=== PATIENT | male | born 1985 | race Native Hawaiian/Other Pacific Islander ===

== ENCOUNTER 2020-06-09 17:30 | Inpatient (IN) | payer MEDICAID, OTHER ==
[~2020-06-09] VITALS: Ht 180.3 cm; Wt 180.0 kg
[2020-06-09] MEDS ORDERED: SODIUM CHLORIDE 0.9% 1,000 ML IV ONE (19:00)
[2020-06-09 19:16] LABS: Basophils # (auto) 0 10 ^3/uL (0-0.2); Eosinophils # (auto) 0 10 ^3/uL (0-0.8); Eosinophils % (auto) 0.1 % (0.0-7.0); Monocytes # (auto) 0.8 10 ^3/uL (0-1.3); Monocytes % (auto) 7.8 % (0.0-12.0)
[2020-06-09 19:18] LABS: Basophils % (auto) 0.4 % (0.0-2.0); Hematocrit 47.3 % (41.0-53.0); Hemoglobin 14.9 g/dL (13.5-17.5); Lymphocytes # (auto) 1.7 10 ^3/uL (0.4-5.4); Lymphocytes % (auto) 16.5 % (10.0-50.0); Mean Corpuscular Hemoglobin 24.4 pg (28.0-32.0); Mean Corpuscular Hgb Conc. 31.5 g/dL (32.0-36.0); Mean Corpuscular Volume 77.5 fL (80.0-100.0); Neutrophils # (auto) 7.7 10 ^3/uL (1.6-8.6); Neutrophils % (auto) 75.2 % (37.0-80.0); Nucleated Red Blood Cells % 0.3 %; Platelet Count (auto) 221 10^3/uL (140-450); Red Blood Cells 6.11 10^6/uL (4.5-5.90); Red Cell Distribution Width 16.4 % (11.8-14.3); White Blood Cell 10.2 10^3/uL (4.4-10.8)
[2020-06-09 19:36] LABS: Albumin 2.6 g/dL (3.4-5.0); Anion Gap 7 (5-15); BUN/Creatinine Ratio 11.1; Blood Urea Nitrogen 10 mg/dL (7-18); Calcium 8.5 mg/dL (8.5-10.1); Carbon Dioxide 31 mmol/L (21-32); Chloride 97 mmol/L (98-107); GFR African American 123 mL/min; GFR Non-African American 102 mL/min; Glucose 220 mg/dL (74-106); Potassium 3.9 mmol/L (3.5-5.1); Sodium 135 mmol/L (136-145)
[2020-06-09 19:41] LABS: Alanine Aminotransferase 57 U/L (16-61); Alkaline Phosphatase 142 U/L (45-117); Aspartate Aminotransferase 66 U/L (15-37); Bilirubin, Total 0.5 mg/dL (0.2-1.0)
[2020-06-09] MEDS ORDERED: MORPHINE SULF INJ 2 MG/ML SYRINGE 1ML IV PRN (23:00)
[2020-06-09] MEDS ORDERED: HYDROcodone-ACET 5/325MG TAB PO PRN (23:00)
[2020-06-09] MEDS ORDERED: ONDANSETRON HCL 4 MG/2 ML VIAL IV PRN (23:00)
[2020-06-09] MEDS ORDERED: DOCUSATE SOD 100 MG CAP PO PRN (23:00)
[2020-06-09] MEDS ORDERED: DEXTROSE (50%) 50ML SYRG IV PRN (23:00)
[2020-06-09] MEDS ORDERED: LORazepam 0.5 MG TAB PO PRN (23:00)
[2020-06-09] MEDS ORDERED: ACETAMINOPHEN 500 MG TAB PO PRN (23:00)
[2020-06-09] MEDS ORDERED: ACETAMINOPHEN 325 MG TAB PO PRN (23:00)
[2020-06-09 23:17] VITALS: BP 143/76
[2020-06-09 23:20] LABS: Urine Bacteria NONE SEEN /hpf (None Seen); Urine Blood Negative /uL (Negative); Urine Mucus FEW (None Seen); Urine WBC 1 /hpf (0 - 3)
[2020-06-10] VITALS (15 sets, daily range): BP systolic 108–147; BP diastolic 62–88
[2020-06-10] MEDS: ACCU-CHEK COMFORT CURVE STRIP VI SCH ×6 (00:02→20:05)
[2020-06-10] MEDS: InsuLIN REG 1unit/0.01ml Soln (100units/ml) SC SCH ×7 (00:03→23:59)
[2020-06-10] MEDS: ALBUTEROL SULF HFA 90MCG INH 200DOSE IN SCH (08:22)
[2020-06-10 08:25] LABS: White Blood Cell 9.9 10^3/uL (4.4-10.8)
[2020-06-10 08:31] LABS: Hematocrit 47.6 % (41.0-53.0); Hemoglobin 14.7 g/dL (13.5-17.5); Mean Corpuscular Hemoglobin 24.6 pg (28.0-32.0); Mean Corpuscular Hgb Conc. 30.9 g/dL (32.0-36.0); Mean Corpuscular Volume 79.5 fL (80.0-100.0); Platelet Count (auto) 245 10^3/uL (140-450); Red Blood Cells 5.99 10^6/uL (4.5-5.90); Red Cell Distribution Width 17.3 % (11.8-14.3)
[2020-06-10 08:45] LABS: Basophils % (manual) 0 (0.0-2.0); Blast Cells 0; Eosinophils % (manual) 0 (0-7); Metamyelocytes % 0; Promyelocytes % 0; Reactive Lymphocytes 0
[2020-06-10 08:51] LABS: Potassium 4.4 mmol/L (3.5-5.1)
[2020-06-10 08:59] LABS: Albumin 2.4 g/dL (3.4-5.0); BUN/Creatinine Ratio 13.2; Bilirubin, Total 0.4 mg/dL (0.2-1.0); Calcium 8.2 mg/dL (8.5-10.1); Magnesium 2.6 mg/dL (1.6-2.6); Total Protein 7.8 g/dL (6.4-8.2)
[2020-06-10 09:30] LABS: Band Neutrophils % (manual) 3; Lymphocytes % (manual) 13 (10.0-50.0); Monocytes % (manual) 3 (0-12); Myelocytes % 1
[2020-06-10] MEDS: DOXYCYCLINE 100 MG TAB/CAP PO SCH ×2 (09:42→22:30)
[2020-06-10] MEDS: ZINC SULFATE 220mg CAP or TAB PO SCH (09:42)
[2020-06-10] MEDS: ASCORBIC ACID 1,000 MG TAB PO SCH (09:42)
[2020-06-10] MEDS ORDERED: ENOXAPARIN SOD 40 MG/0.4 ML SYRINGE SC SCH (10:00)
[2020-06-10] MEDS ORDERED: PATIENTS OWN MEDICATION (REMDESIVIR 200 MG) IV SCH (10:15)
[2020-06-10] MEDS ORDERED: BUDESONIDE (INHALATION) 0.5 MG/2 ML NEB NEB ONE (11:45)
[2020-06-10] MEDS ORDERED: FUROSEMIDE 40 MG/4 ML VIAL IV ONE ×2 (11:45→18:30)
[2020-06-10] MEDS ORDERED: THIAMINE 100mg/ml INJ (200mg/2ml VIAL) IV ONE (11:45)
[2020-06-10] MEDS ORDERED: REMDESIVIR 200 MG in NS 210ml LOADING DOSE ADULT IV ONE (15:00)
[2020-06-10] MEDS ORDERED: POTASSIUM CHL 20 Meq TABLET PO ONE (18:30)
[2020-06-10] MEDS: BUDESONIDE (INHALATION) 0.5 MG/2 ML NEB NEB SCH (21:07)
[2020-06-10] MEDS: ALBUTEROL SULF 2.5 MG/0.5ML(0.5%) NEB SOLN NEB SCH (21:07)
[2020-06-10] MEDS: ENOXAPARIN SOD 40 MG/0.4 ML SYRINGE SC SCH (22:30)
[2020-06-10] MEDS: INSULIN 70/30 1unit/0.01ml Susp (100units/ml) SC SCH (23:54)
[2020-06-11] VITALS (11 sets, daily range): BP systolic 109–147; BP diastolic 51–95
[2020-06-11 03:48] LABS: Basophils # (auto) 0 10 ^3/uL (0-0.2); Eosinophils # (auto) 0 10 ^3/uL (0-0.8); Eosinophils % (auto) 0.3 % (0.0-7.0); Hemoglobin 14.8 g/dL (13.5-17.5); Lymphocytes # (auto) 1.6 10 ^3/uL (0.4-5.4); Monocytes # (auto) 0.7 10 ^3/uL (0-1.3); Neutrophils # (auto) 7.5 10 ^3/uL (1.6-8.6); White Blood Cell 9.8 10^3/uL (4.4-10.8)
[2020-06-11 03:50] LABS: Basophils % (auto) 0.3 % (0.0-2.0); Hematocrit 46.5 % (41.0-53.0); Mean Corpuscular Hgb Conc. 31.8 g/dL (32.0-36.0); Mean Corpuscular Volume 78.4 fL (80.0-100.0); Monocytes % (auto) 6.8 % (0.0-12.0); Neutrophils % (auto) 76.6 % (37.0-80.0); Nucleated Red Blood Cells % 0.7 %; Platelet Count (auto) 231 10^3/uL (140-450); Red Blood Cells 5.93 10^6/uL (4.5-5.90); Red Cell Distribution Width 16.4 % (11.8-14.3)
[2020-06-11 04:01] LABS: Albumin 2.4 g/dL (3.4-5.0); Calcium 8.1 mg/dL (8.5-10.1); Magnesium 2.5 mg/dL (1.6-2.6)
[2020-06-11 04:05] LABS: BUN/Creatinine Ratio 16.9; Bilirubin, Total 0.6 mg/dL (0.2-1.0); Total Protein 8.1 g/dL (6.4-8.2)
[2020-06-11 04:17] LABS: CRP High Sensitivity 9.72 mg/dL (< 0.3)
[2020-06-11 04:24] LABS: INR 1.03 (0.9-1.15)
[2020-06-11] MEDS: ACCU-CHEK COMFORT CURVE STRIP VI SCH ×6 (04:28→23:25)
[2020-06-11] MEDS: InsuLIN REG 1unit/0.01ml Soln (100units/ml) SC SCH ×4 (04:30→18:00)
[2020-06-11] MEDS: BUDESONIDE (INHALATION) 0.5 MG/2 ML NEB NEB SCH ×2 (07:03→21:38)
[2020-06-11] MEDS: ALBUTEROL SULF 2.5 MG/0.5ML(0.5%) NEB SOLN NEB SCH ×3 (07:03→21:38)
[2020-06-11] MEDS: ASCORBIC ACID 1,000 MG TAB PO SCH (08:12)
[2020-06-11] MEDS: ZINC SULFATE 220mg CAP or TAB PO SCH (08:12)
[2020-06-11] MEDS: DOXYCYCLINE 100 MG TAB/CAP PO SCH ×2 (08:12→23:24)
[2020-06-11] MEDS: INSULIN 70/30 1unit/0.01ml Susp (100units/ml) SC SCH ×2 (09:26→22:00)
[2020-06-11] MEDS: ENOXAPARIN SOD 40 MG/0.4 ML SYRINGE SC SCH ×2 (09:28→23:24)
[2020-06-11] MEDS: THIAMINE 100mg/ml INJ (200mg/2ml VIAL) IV SCH (09:29)
[2020-06-11] MEDS ORDERED: FUROSEMIDE 40 MG/4 ML VIAL IV SCH (10:00)
[2020-06-11] MEDS: REMDESIVIR 100mg in NS 230ml DAILYx4DAYS (NO VENT) IV SCH (15:40)
[2020-06-11] MEDS: FUROSEMIDE 40 MG/4 ML VIAL IV SCH (18:01)
[2020-06-11] MEDS ORDERED: guaiFENesin 200 MG/10 ML UD PO PRN (23:30)
[2020-06-12] VITALS (10 sets, daily range): BP systolic 101–118; BP diastolic 49–79
[2020-06-12] MEDS: InsuLIN REG 1unit/0.01ml Soln (100units/ml) SC SCH ×5 (00:25→23:38)
[2020-06-12 03:42] LABS: Albumin 2.4 g/dL (3.4-5.0); Calcium 7.9 mg/dL (8.5-10.1); Potassium 3.5 mmol/L (3.5-5.1)
[2020-06-12 03:45] LABS: BUN/Creatinine Ratio 17.2; Bilirubin, Total 0.6 mg/dL (0.2-1.0); Total Protein 7.5 g/dL (6.4-8.2)
[2020-06-12] MEDS: BUDESONIDE (INHALATION) 0.5 MG/2 ML NEB NEB SCH ×2 (06:12→22:15)
[2020-06-12] MEDS: ALBUTEROL SULF 2.5 MG/0.5ML(0.5%) NEB SOLN NEB SCH ×3 (06:12→22:15)
[2020-06-12] MEDS: FUROSEMIDE 40 MG/4 ML VIAL IV SCH ×2 (07:01→17:13)
[2020-06-12] MEDS: ACCU-CHEK COMFORT CURVE STRIP VI SCH ×4 (07:02→23:38)
[2020-06-12] MEDS: ZINC SULFATE 220mg CAP or TAB PO SCH (09:28)
[2020-06-12] MEDS: THIAMINE 100mg/ml INJ (200mg/2ml VIAL) IV SCH (09:28)
[2020-06-12] MEDS: ASCORBIC ACID 1,000 MG TAB PO SCH (09:29)
[2020-06-12] MEDS: ENOXAPARIN SOD 40 MG/0.4 ML SYRINGE SC SCH ×2 (09:29→21:05)
[2020-06-12] MEDS: DOXYCYCLINE 100 MG TAB/CAP PO SCH ×2 (09:29→21:04)
[2020-06-12] MEDS: INSULIN 70/30 1unit/0.01ml Susp (100units/ml) SC SCH ×2 (10:00→21:04)
[2020-06-12] MEDS: REMDESIVIR 100mg in NS 230ml DAILYx4DAYS (NO VENT) IV SCH (16:01)
[2020-06-12] MEDS ORDERED: ACETAMINOPHEN 325 MG TAB PO PRN (19:30)
[2020-06-12] MEDS: ERGOCALCIFEROL 50,000 UNIT(1.25MG) CAP PO SCH (20:00)
[2020-06-13] VITALS (8 sets, daily range): BP systolic 103–126; BP diastolic 58–74
[2020-06-13 03:28] LABS: Basophils # (auto) 0 10 ^3/uL (0-0.2); Basophils % (auto) 0.3 % (0.0-2.0); Eosinophils # (auto) 0.1 10 ^3/uL (0-0.8); Lymphocytes # (auto) 1.1 10 ^3/uL (0.4-5.4); Monocytes # (auto) 0.7 10 ^3/uL (0-1.3); Neutrophils # (auto) 6.1 10 ^3/uL (1.6-8.6); Neutrophils % (auto) 75.7 % (37.0-80.0); Red Blood Cells 5.88 10^6/uL (4.5-5.90)
[2020-06-13 03:29] LABS: Eosinophils % (auto) 1.8 % (0.0-7.0); Hematocrit 45.4 % (41.0-53.0); Hemoglobin 14.6 g/dL (13.5-17.5); Lymphocytes % (auto) 13.3 % (10.0-50.0); Mean Corpuscular Hemoglobin 24.9 pg (28.0-32.0); Mean Corpuscular Hgb Conc. 32.2 g/dL (32.0-36.0); Mean Corpuscular Volume 77.3 fL (80.0-100.0); Monocytes % (auto) 8.9 % (0.0-12.0); Nucleated Red Blood Cells % 0.3 %; Platelet Count (auto) 280 10^3/uL (140-450); Red Cell Distribution Width 16.2 % (11.8-14.3)
[2020-06-13 03:47] LABS: Albumin 2.4 g/dL (3.4-5.0); Calcium 8.2 mg/dL (8.5-10.1); Potassium 3.5 mmol/L (3.5-5.1)
[2020-06-13 04:28] LABS: Bilirubin, Total 0.8 mg/dL (0.2-1.0); Total Protein 7.5 g/dL (6.4-8.2)
[2020-06-13] MEDS: InsuLIN REG 1unit/0.01ml Soln (100units/ml) SC SCH ×3 (06:00→17:17)
[2020-06-13] MEDS: ALBUTEROL SULF 2.5 MG/0.5ML(0.5%) NEB SOLN NEB SCH ×3 (06:08→22:34)
[2020-06-13] MEDS: BUDESONIDE (INHALATION) 0.5 MG/2 ML NEB NEB SCH ×2 (06:09→22:34)
[2020-06-13] MEDS: ACCU-CHEK COMFORT CURVE STRIP VI SCH ×3 (06:23→17:12)
[2020-06-13] MEDS: FUROSEMIDE 40 MG/4 ML VIAL IV SCH ×2 (06:23→18:48)
[2020-06-13] MEDS: INSULIN 70/30 1unit/0.01ml Susp (100units/ml) SC SCH ×2 (10:12→23:29)
[2020-06-13] MEDS: THIAMINE 100mg/ml INJ (200mg/2ml VIAL) IV SCH (10:13)
[2020-06-13] MEDS: ZINC SULFATE 220mg CAP or TAB PO SCH (10:14)
[2020-06-13] MEDS: ENOXAPARIN SOD 40 MG/0.4 ML SYRINGE SC SCH ×2 (10:14→23:28)
[2020-06-13] MEDS: ASCORBIC ACID 1,000 MG TAB PO SCH (10:14)
[2020-06-13] MEDS: DOXYCYCLINE 100 MG TAB/CAP PO SCH ×2 (10:14→23:27)
[2020-06-13] MEDS: REMDESIVIR 100mg in NS 230ml DAILYx4DAYS (NO VENT) IV SCH (15:36)
[2020-06-14] VITALS: BP 118/64
[2020-06-14] MEDS: ACCU-CHEK COMFORT CURVE STRIP VI SCH ×4 (00:11→17:33)
[2020-06-14] MEDS: InsuLIN REG 1unit/0.01ml Soln (100units/ml) SC SCH ×4 (00:12→17:33)
[2020-06-14 03:47] LABS: Albumin 2.5 g/dL (3.4-5.0); Calcium 8.7 mg/dL (8.5-10.1); Potassium 3.6 mmol/L (3.5-5.1)
[2020-06-14 03:50] LABS: BUN/Creatinine Ratio 17.2; Bilirubin, Total 0.7 mg/dL (0.2-1.0)
[2020-06-14 04:00] VITALS: BP 100/55
[2020-06-14] MEDS: FUROSEMIDE 40 MG/4 ML VIAL IV SCH ×2 (05:10→17:25)
[2020-06-14] MEDS: BUDESONIDE (INHALATION) 0.5 MG/2 ML NEB NEB SCH (07:31)
[2020-06-14] MEDS: ALBUTEROL SULF 2.5 MG/0.5ML(0.5%) NEB SOLN NEB SCH (07:31)
[2020-06-14 08:00] VITALS: BP 118/73
[2020-06-14] MEDS: ZINC SULFATE 220mg CAP or TAB PO SCH (09:06)
[2020-06-14] MEDS: DOXYCYCLINE 100 MG TAB/CAP PO SCH ×2 (09:06→23:07)
[2020-06-14] MEDS: THIAMINE 100mg/ml INJ (200mg/2ml VIAL) IV SCH (09:06)
[2020-06-14] MEDS: ASCORBIC ACID 1,000 MG TAB PO SCH (09:07)
[2020-06-14] MEDS: ENOXAPARIN SOD 40 MG/0.4 ML SYRINGE SC SCH ×2 (09:07→23:07)
[2020-06-14] MEDS: INSULIN 70/30 1unit/0.01ml Susp (100units/ml) SC SCH ×2 (09:27→23:08)
[2020-06-14 12:00] VITALS: BP 112/70
[2020-06-14] MEDS: REMDESIVIR 100mg in NS 230ml DAILYx4DAYS (NO VENT) IV SCH (15:00)
[2020-06-14] MEDS: ALBUTEROL SULF HFA 90MCG INH 200DOSE IN SCH ×2 (15:17→23:00)
[2020-06-14 16:00] VITALS: BP 119/75
[2020-06-14 20:00] VITALS: BP 119/75
[2020-06-14] MEDS: BUDESONIDE (INHALATION) 180 MCG IH IN SCH (23:00)
[2020-06-15] VITALS: BP 136/82
[2020-06-15] MEDS: ACCU-CHEK COMFORT CURVE STRIP VI SCH ×4 (00:24→17:34)
[2020-06-15 04:00] VITALS: BP 132/71
[2020-06-15] MEDS: FUROSEMIDE 40 MG/4 ML VIAL IV SCH ×2 (06:02→17:39)
[2020-06-15] MEDS: InsuLIN REG 1unit/0.01ml Soln (100units/ml) SC SCH ×4 (06:03→17:38)
[2020-06-15] MEDS: ALBUTEROL SULF HFA 90MCG INH 200DOSE IN SCH ×3 (07:42→22:15)
[2020-06-15] MEDS: BUDESONIDE (INHALATION) 180 MCG IH IN SCH ×2 (07:43→22:15)
[2020-06-15 08:00] VITALS: BP 126/73
[2020-06-15] MEDS: THIAMINE 100mg/ml INJ (200mg/2ml VIAL) IV SCH (09:43)
[2020-06-15] MEDS: DOXYCYCLINE 100 MG TAB/CAP PO SCH (09:43)
[2020-06-15] MEDS: ENOXAPARIN SOD 40 MG/0.4 ML SYRINGE SC SCH ×2 (09:44→22:18)
[2020-06-15] MEDS: ASCORBIC ACID 1,000 MG TAB PO SCH (09:44)
[2020-06-15] MEDS: ZINC SULFATE 220mg CAP or TAB PO SCH (09:44)
[2020-06-15] MEDS: INSULIN 70/30 1unit/0.01ml Susp (100units/ml) SC SCH ×2 (09:54→22:17)
[2020-06-15 11:46] VITALS: BP 105/69
[2020-06-15 15:50] VITALS: BP 110/77
[2020-06-15 20:00] VITALS: BP 120/72
[2020-06-16] VITALS (7 sets, daily range): BP systolic 117–140; BP diastolic 63–76
[2020-06-16] MEDS: ACCU-CHEK COMFORT CURVE STRIP VI SCH ×5 (00:19→23:30)
[2020-06-16 03:36] LABS: Basophils # (auto) 0 10 ^3/uL (0-0.2); Basophils % (auto) 0.3 % (0.0-2.0); Eosinophils # (auto) 0.2 10 ^3/uL (0-0.8); Eosinophils % (auto) 1.7 % (0.0-7.0); Hematocrit 48.7 % (41.0-53.0); Hemoglobin 15.4 g/dL (13.5-17.5); Lymphocytes # (auto) 1.6 10 ^3/uL (0.4-5.4); Lymphocytes % (auto) 17.3 % (10.0-50.0); Mean Corpuscular Hemoglobin 24.6 pg (28.0-32.0); Mean Corpuscular Hgb Conc. 31.7 g/dL (32.0-36.0); Mean Corpuscular Volume 77.5 fL (80.0-100.0); Monocytes # (auto) 0.8 10 ^3/uL (0-1.3); Monocytes % (auto) 8.4 % (0.0-12.0); Neutrophils # (auto) 6.6 10 ^3/uL (1.6-8.6); Neutrophils % (auto) 72.3 % (37.0-80.0); Nucleated Red Blood Cells % 0.1 %; Platelet Count (auto) 373 10^3/uL (140-450); Red Blood Cells 6.28 10^6/uL (4.5-5.90); Red Cell Distribution Width 16.4 % (11.8-14.3); White Blood Cell 9.1 10^3/uL (4.4-10.8)
[2020-06-16 03:57] LABS: BUN/Creatinine Ratio 23.9; Calcium 9.4 mg/dL (8.5-10.1); Potassium 3.2 mmol/L (3.5-5.1)
[2020-06-16] MEDS: FUROSEMIDE 40 MG/4 ML VIAL IV SCH ×2 (05:43→17:42)
[2020-06-16] MEDS: InsuLIN REG 1unit/0.01ml Soln (100units/ml) SC SCH ×4 (05:45→17:38)
[2020-06-16] MEDS ORDERED: POTASSIUM CHL 20 Meq TABLET PO ONE (08:45)
[2020-06-16] MEDS: ASCORBIC ACID 1,000 MG TAB PO SCH (10:00)
[2020-06-16] MEDS: INSULIN 70/30 1unit/0.01ml Susp (100units/ml) SC SCH ×2 (10:00→22:00)
[2020-06-16] MEDS: ENOXAPARIN SOD 40 MG/0.4 ML SYRINGE SC SCH ×2 (10:00→23:30)
[2020-06-16] MEDS: ZINC SULFATE 220mg CAP or TAB PO SCH (10:00)
[2020-06-16] MEDS: THIAMINE 100mg/ml INJ (200mg/2ml VIAL) IV SCH (10:00)
[2020-06-16] MEDS: ALBUTEROL SULF HFA 90MCG INH 200DOSE IN SCH (23:21)
[2020-06-16] MEDS: BUDESONIDE (INHALATION) 180 MCG IH IN SCH (23:22)
[2020-06-17] VITALS (7 sets, daily range): BP systolic 110–147; BP diastolic 69–81
[2020-06-17] MEDS: ACCU-CHEK COMFORT CURVE STRIP VI SCH ×4 (05:56→23:14)
[2020-06-17] MEDS: FUROSEMIDE 40 MG/4 ML VIAL IV SCH ×2 (05:56→18:25)
[2020-06-17] MEDS: InsuLIN REG 1unit/0.01ml Soln (100units/ml) SC SCH ×5 (08:04→23:14)
[2020-06-17] MEDS: BUDESONIDE (INHALATION) 180 MCG IH IN SCH ×2 (08:35→22:35)
[2020-06-17] MEDS: ALBUTEROL SULF HFA 90MCG INH 200DOSE IN SCH ×3 (08:35→22:35)
[2020-06-17] MEDS: ZINC SULFATE 220mg CAP or TAB PO SCH (10:00)
[2020-06-17] MEDS: THIAMINE 100mg/ml INJ (200mg/2ml VIAL) IV SCH (10:00)
[2020-06-17] MEDS: ASCORBIC ACID 1,000 MG TAB PO SCH (10:00)
[2020-06-17] MEDS: INSULIN 70/30 1unit/0.01ml Susp (100units/ml) SC SCH ×2 (10:00→23:31)
[2020-06-17] MEDS: ENOXAPARIN SOD 40 MG/0.4 ML SYRINGE SC SCH ×2 (10:00→22:20)
[2020-06-17] MEDS: POTASSIUM CHL 20 Meq TABLET PO SCH (22:20)
[2020-06-18 04:44] VITALS: BP 124/86
[2020-06-18] MEDS: FUROSEMIDE 40 MG/4 ML VIAL IV SCH ×2 (05:53→17:35)
[2020-06-18] MEDS: ACCU-CHEK COMFORT CURVE STRIP VI SCH ×4 (06:02→23:30)
[2020-06-18] MEDS: InsuLIN REG 1unit/0.01ml Soln (100units/ml) SC SCH ×4 (06:18→23:32)
[2020-06-18] MEDS: BUDESONIDE (INHALATION) 180 MCG IH IN SCH ×2 (06:57→23:08)
[2020-06-18] MEDS: ALBUTEROL SULF HFA 90MCG INH 200DOSE IN SCH ×3 (06:57→23:08)
[2020-06-18 08:00] VITALS: BP 130/74
[2020-06-18] MEDS: ZINC SULFATE 220mg CAP or TAB PO SCH (10:15)
[2020-06-18] MEDS: ASCORBIC ACID 1,000 MG TAB PO SCH (10:15)
[2020-06-18] MEDS: POTASSIUM CHL 20 Meq TABLET PO SCH ×2 (10:16→21:26)
[2020-06-18] MEDS: ENOXAPARIN SOD 40 MG/0.4 ML SYRINGE SC SCH ×2 (10:17→21:25)
[2020-06-18] MEDS: THIAMINE 100mg/ml INJ (200mg/2ml VIAL) IV SCH (10:17)
[2020-06-18] MEDS: INSULIN 70/30 1unit/0.01ml Susp (100units/ml) SC SCH ×2 (10:50→23:29)
[2020-06-18 12:00] VITALS: BP 117/64
[2020-06-18] MEDS ORDERED: POTASSIUM CHL 20 Meq TABLET PO ONE (12:00)
[2020-06-18 17:00] VITALS: BP 122/74
[2020-06-18 22:00] VITALS: BP 131/67
[2020-06-19 03:37] VITALS: BP 131/67
[2020-06-19 05:04] VITALS: BP 108/62
[2020-06-19] MEDS: FUROSEMIDE 40 MG/4 ML VIAL IV SCH ×2 (06:04→17:34)
[2020-06-19] MEDS: ACCU-CHEK COMFORT CURVE STRIP VI SCH ×3 (06:04→17:44)
[2020-06-19] MEDS: InsuLIN REG 1unit/0.01ml Soln (100units/ml) SC SCH ×3 (06:05→17:44)
[2020-06-19] MEDS: ALBUTEROL SULF HFA 90MCG INH 200DOSE IN SCH ×3 (07:07→22:51)
[2020-06-19] MEDS: BUDESONIDE (INHALATION) 180 MCG IH IN SCH ×2 (07:07→22:51)
[2020-06-19 07:38] LABS: Magnesium 2.2 mg/dL (1.6-2.6); Potassium 3.6 mmol/L (3.5-5.1)
[2020-06-19 09:00] VITALS: BP 109/66
[2020-06-19] MEDS: ZINC SULFATE 220mg CAP or TAB PO SCH (09:53)
[2020-06-19] MEDS: POTASSIUM CHL 20 Meq TABLET PO SCH ×2 (09:53→21:33)
[2020-06-19] MEDS: ENOXAPARIN SOD 40 MG/0.4 ML SYRINGE SC SCH ×2 (09:54→21:33)
[2020-06-19] MEDS: THIAMINE 100mg/ml INJ (200mg/2ml VIAL) IV SCH (09:54)
[2020-06-19] MEDS: ASCORBIC ACID 1,000 MG TAB PO SCH (09:54)
[2020-06-19] MEDS: INSULIN 70/30 1unit/0.01ml Susp (100units/ml) SC SCH ×2 (10:02→21:36)
[2020-06-19 13:06] VITALS: BP 112/66
[2020-06-19 17:00] VITALS: BP 145/79
[2020-06-19] MEDS: ERGOCALCIFEROL 50,000 UNIT(1.25MG) CAP PO SCH (21:33)
[2020-06-19 22:00] VITALS: BP 131/71
[2020-06-20 05:00] VITALS: BP 130/71
[2020-06-20] MEDS: ACCU-CHEK COMFORT CURVE STRIP VI SCH ×4 (05:59→17:47)
[2020-06-20] MEDS: FUROSEMIDE 40 MG/4 ML VIAL IV SCH ×2 (05:59→18:09)
[2020-06-20] MEDS: InsuLIN REG 1unit/0.01ml Soln (100units/ml) SC SCH ×4 (06:02→17:48)
[2020-06-20] MEDS: ALBUTEROL SULF HFA 90MCG INH 200DOSE IN SCH ×3 (07:03→22:50)
[2020-06-20] MEDS: BUDESONIDE (INHALATION) 180 MCG IH IN SCH ×2 (07:05→22:50)
[2020-06-20 08:01] LABS: Basophils # (auto) 0.1 10 ^3/uL (0-0.2); Basophils % (auto) 0.6 % (0.0-2.0); Eosinophils # (auto) 0.2 10 ^3/uL (0-0.8); Eosinophils % (auto) 1.7 % (0.0-7.0); Hematocrit 45.8 % (41.0-53.0); Hemoglobin 14.7 g/dL (13.5-17.5); Lymphocytes # (auto) 1.8 10 ^3/uL (0.4-5.4); Lymphocytes % (auto) 18.1 % (10.0-50.0); Mean Corpuscular Hemoglobin 25.2 pg (28.0-32.0); Mean Corpuscular Hgb Conc. 32.1 g/dL (32.0-36.0); Mean Corpuscular Volume 78.4 fL (80.0-100.0); Monocytes # (auto) 0.8 10 ^3/uL (0-1.3); Monocytes % (auto) 8.4 % (0.0-12.0); Neutrophils # (auto) 7.2 10 ^3/uL (1.6-8.6); Neutrophils % (auto) 71.2 % (37.0-80.0); Nucleated Red Blood Cells % 0.2 %; Platelet Count (auto) 396 10^3/uL (140-450); Red Blood Cells 5.83 10^6/uL (4.5-5.90); White Blood Cell 10.1 10^3/uL (4.4-10.8)
[2020-06-20 08:24] LABS: Albumin 2.9 g/dL (3.4-5.0); BUN/Creatinine Ratio 17.8; Calcium 8.9 mg/dL (8.5-10.1); Magnesium 2.4 mg/dL (1.6-2.6); Potassium 3.5 mmol/L (3.5-5.1)
[2020-06-20 08:34] LABS: Bilirubin, Total 0.7 mg/dL (0.2-1.0); Total Protein 7.8 g/dL (6.4-8.2)
[2020-06-20 09:13] LABS: Cholesterol 124 mg/dL (< 200); HDL Cholesterol 43 mg/dL (40-59); Triglycerides 151 mg/dL (< 150)
[2020-06-20 09:14] LABS: LDL Cholesterol 68 mg/dL (< 100)
[2020-06-20] MEDS ORDERED: metFORMIN HYDROCHLORIDE 500 MG TAB PO ONE (09:30)
[2020-06-20] MEDS: THIAMINE 100mg/ml INJ (200mg/2ml VIAL) IV SCH (10:01)
[2020-06-20] MEDS: ASCORBIC ACID 1,000 MG TAB PO SCH (10:02)
[2020-06-20] MEDS: ZINC SULFATE 220mg CAP or TAB PO SCH (10:02)
[2020-06-20] MEDS: POTASSIUM CHL 20 Meq TABLET PO SCH ×2 (10:02→22:19)
[2020-06-20] MEDS: ENOXAPARIN SOD 40 MG/0.4 ML SYRINGE SC SCH ×2 (10:03→22:19)
[2020-06-20 13:00] VITALS: BP 143/76
[2020-06-20 17:00] VITALS: BP 129/72
[2020-06-20] MEDS: metFORMIN HYDROCHLORIDE 850 MG TAB PO SCH (18:00)
[2020-06-20 22:00] VITALS: BP 125/75
[2020-06-21] MEDS: ACCU-CHEK COMFORT CURVE STRIP VI SCH ×4 (00:43→17:58)
[2020-06-21 05:00] VITALS: BP 130/88
[2020-06-21] MEDS: InsuLIN REG 1unit/0.01ml Soln (100units/ml) SC SCH ×4 (06:00→17:58)
[2020-06-21] MEDS: FUROSEMIDE 40 MG/4 ML VIAL IV SCH ×2 (06:14→18:02)
[2020-06-21] MEDS: ALBUTEROL SULF HFA 90MCG INH 200DOSE IN SCH ×3 (07:07→22:46)
[2020-06-21] MEDS: BUDESONIDE (INHALATION) 180 MCG IH IN SCH ×2 (07:07→22:46)
[2020-06-21] MEDS: metFORMIN HYDROCHLORIDE 850 MG TAB PO SCH ×2 (08:41→18:03)
[2020-06-21] MEDS: THIAMINE 100mg/ml INJ (200mg/2ml VIAL) IV SCH (08:41)
[2020-06-21] MEDS: ZINC SULFATE 220mg CAP or TAB PO SCH (08:41)
[2020-06-21] MEDS: ENOXAPARIN SOD 40 MG/0.4 ML SYRINGE SC SCH ×2 (08:42→21:36)
[2020-06-21] MEDS: POTASSIUM CHL 20 Meq TABLET PO SCH ×2 (08:42→21:36)
[2020-06-21] MEDS: ASCORBIC ACID 1,000 MG TAB PO SCH (08:42)
[2020-06-21 09:00] VITALS: BP 134/81
[2020-06-21 13:00] VITALS: BP 125/81
[2020-06-21] MEDS ORDERED: DexAMETHasone 4 MG TAB PO ONE (14:15)
[2020-06-21 17:00] VITALS: BP 104/72
[2020-06-21 22:00] VITALS: BP 140/84
[2020-06-22] MEDS: ACCU-CHEK COMFORT CURVE STRIP VI SCH ×3 (00:58→12:11)
[2020-06-22] MEDS: InsuLIN REG 1unit/0.01ml Soln (100units/ml) SC SCH ×3 (00:59→12:14)
[2020-06-22 02:41] VITALS: BP 140/84
[2020-06-22 05:00] VITALS: BP 109/62
[2020-06-22] MEDS: FUROSEMIDE 40 MG/4 ML VIAL IV SCH (06:13)
[2020-06-22] MEDS: BUDESONIDE (INHALATION) 180 MCG IH IN SCH (07:21)
[2020-06-22] MEDS: ALBUTEROL SULF HFA 90MCG INH 200DOSE IN SCH ×2 (07:21→14:59)
[2020-06-22 07:38] LABS: Calcium 9.3 mg/dL (8.5-10.1); Potassium 3.9 mmol/L (3.5-5.1)
[2020-06-22 07:41] LABS: BUN/Creatinine Ratio 17.6
[2020-06-22 09:00] VITALS: BP 135/81
[2020-06-22] MEDS: POTASSIUM CHL 20 Meq TABLET PO SCH (09:20)
[2020-06-22] MEDS: ASCORBIC ACID 1,000 MG TAB PO SCH (09:20)
[2020-06-22] MEDS: ENOXAPARIN SOD 40 MG/0.4 ML SYRINGE SC SCH (09:21)
[2020-06-22] MEDS: THIAMINE 100mg/ml INJ (200mg/2ml VIAL) IV SCH (09:21)
[2020-06-22] MEDS: ZINC SULFATE 220mg CAP or TAB PO SCH (09:21)
[2020-06-22] MEDS: metFORMIN HYDROCHLORIDE 850 MG TAB PO SCH (09:22)
[2020-06-22] MEDS ORDERED: DexAMETHasone 4 MG TAB PO SCH (10:00)
[2020-06-22 13:00] VITALS: BP 124/85
[2020-06-22 15:14] VITALS: BP 124/85
== END 2020-06-22 17:17 | disposition home or self-care (01) | DRG 137 ==
LOC: ER 17:30 → EDBD 17:30 → TELE 17:31 → TELE-EAST 06-10 04:36 → DOU IN ICU 06-10 10:49 → TELE-EAST 06-17 13:48
PROVIDERS: ADMIT Hospitalist; ATTEND Internal Medicine
PROC: XW13325 Transfusion of Convalescent Plasma (Nonautologous) into Peripheral Vein, Percutaneous Approach, New Technology Group 5 (ICD-10-PCS; principal; 2020-06-10)
PROC: XW033E5 Introduction of Remdesivir Anti-infective into Peripheral Vein, Percutaneous Approach, New Technology Group 5 (ICD-10-PCS; 2020-06-10)
DX: U07.1 COVID-19 (principal); J12.89 Other viral pneumonia; J96.01 Acute respiratory failure with hypoxia; E66.01 Morbid (severe) obesity due to excess calories; E11.65 Type 2 diabetes mellitus with hyperglycemia; E55.9 Vitamin D deficiency, unspecified; Z68.43 Body mass index [BMI] 50.0-59.9, adult
CPT/HCPCS: 36415; 71045; 80048; 80053; 80061; 81001; 82306; 82728; 82962; 83036; 83605; 83615; 83735; 83880; 84132; 84443; 84484; 85007; 85025; 85027; 85379; 85610; 86141; 86850; 86900; 86901; 87426; 93005; 94640; 97163; G0378; J1815

== ENCOUNTER 2024-02-16 13:15 | Inpatient (IN) | payer MEDICAID ==
[~2024-02-16] VITALS: Ht 180.3 cm; Wt 206.3 kg
[2024-02-16 03:25] VITALS: BP 150/69; PULSE 74; RESP 21; TEMP 98
[2024-02-16 14:19] LABS: Basophils # (auto) 0 10 ^3/uL (0-0.2); Eosinophils # (auto) 0.1 10 ^3/uL (0-0.8); Hemoglobin 13.8 g/dL (13.5-17.5); Mean Corpuscular Hemoglobin 25.1 pg (28.0-32.0); Nucleated Red Blood Cells % 0.1 %; Red Blood Cells 5.52 10^6/uL (4.5-5.90)
[2024-02-16 14:21] LABS: Basophils % (auto) 0.3 % (0.0-2.0); Eosinophils % (auto) 1.4 % (0.0-7.0); Hematocrit 43.4 % (41.0-53.0); Lymphocytes # (auto) 1.9 10 ^3/uL (0.4-5.4); Lymphocytes % (auto) 20.4 % (10.0-50.0); Mean Corpuscular Hgb Conc. 31.8 g/dL (32.0-36.0); Mean Corpuscular Volume 78.7 fL (80.0-100.0); Monocytes # (auto) 0.4 10 ^3/uL (0-1.3); Monocytes % (auto) 4.8 % (0.0-12.0); Neutrophils # (auto) 6.7 10 ^3/uL (1.6-8.6); Neutrophils % (auto) 73.1 % (37.0-80.0); Red Cell Distribution Width 15.9 % (11.8-14.3); White Blood Cell 9.1 10^3/uL (4.4-10.8)
[2024-02-16 14:52] LABS: Chloride 101 mmol/L (98-107); Potassium 3.7 mmol/L (3.5-5.1); Sodium 138 mmol/L (136-145)
[2024-02-16 14:53] LABS: Anion Gap 4 (5-15); Carbon Dioxide 33 mmol/L (20-30)
[2024-02-16 14:58] LABS: BUN/Creatinine Ratio 8.4 (10.0-20.0); Blood Urea Nitrogen 7 mg/dL (9-23); Glucose 230 mg/dL (74-106)
[2024-02-16] MEDS: FUROSEMIDE 40 MG/4 ML VIAL IV ONE (15:37)
[2024-02-16] MEDS ORDERED: HYDROcodone-ACET 5/325MG TAB PO PRN (16:45)
[2024-02-16] MEDS ORDERED: hydrALAZINE HCL 20 MG/ML VL IV PRN (16:45)
[2024-02-16] MEDS ORDERED: MORPHINE SULFATE INJ 2 MG/ml SYRG IV PRN (16:45)
[2024-02-16] MEDS ORDERED: ACETAMINOPHEN 325 MG TAB PO PRN ×2 (16:45)
[2024-02-16 17:28] LABS: Alanine Aminotransferase 88 U/L (7-40); Aspartate Aminotransferase 53 U/L (13-40); Cholesterol 123 mg/dL (< 200); HDL Cholesterol 52 mg/dL (40-59); LDL Cholesterol 58 mg/dL (< 100); Triglycerides 91 mg/dL (< 150)
[2024-02-16] MEDS: IOHEXOL 350 MG/ML 100ML IJ ONE (18:59)
[2024-02-16] MEDS: NIFEdipine ER 30 MG TAB PO ONE (19:03)
[2024-02-17] VITALS (7 sets, daily range): BP systolic 109–150; BP diastolic 61–83; PULSE 74–86; RESP 14–21; TEMP 97.3–98.8; O2SAT 90–99
[2024-02-17] MEDS ORDERED: ACET-1304 PO (05:42)
[2024-02-17] MEDS: ENOXAPARIN SOD 40 MG/0.4 ML SYRINGE SC SCH (09:58)
[2024-02-17] MEDS: NIFEdipine ER 30 MG TAB PO SCH (09:58)
[2024-02-17] MEDS: FUROSEMIDE 20 MG/2 ML VIAL IV SCH (10:12)
[2024-02-17 10:59] LABS: Basophils # (auto) 0 10 ^3/uL (0-0.2); Basophils % (auto) 0.2 % (0.0-2.0); Eosinophils # (auto) 0.1 10 ^3/uL (0-0.8); Eosinophils % (auto) 1.4 % (0.0-7.0); Hematocrit 46.8 % (41.0-53.0); Hemoglobin 14.9 g/dL (13.5-17.5); Lymphocytes # (auto) 1.4 10 ^3/uL (0.4-5.4); Lymphocytes % (auto) 15.3 % (10.0-50.0); Mean Corpuscular Hemoglobin 25.3 pg (28.0-32.0); Mean Corpuscular Hgb Conc. 31.7 g/dL (32.0-36.0); Mean Corpuscular Volume 79.6 fL (80.0-100.0); Monocytes # (auto) 0.4 10 ^3/uL (0-1.3); Monocytes % (auto) 3.8 % (0.0-12.0); Neutrophils # (auto) 7.4 10 ^3/uL (1.6-8.6); Neutrophils % (auto) 79.3 % (37.0-80.0); Nucleated Red Blood Cells % 0.1 %; Red Blood Cells 5.88 10^6/uL (4.5-5.90); Red Cell Distribution Width 16.1 % (11.8-14.3); White Blood Cell 9.4 10^3/uL (4.4-10.8)
[2024-02-17 11:11] LABS: Alanine Aminotransferase 81 U/L (7-40); Albumin 4.3 g/dL (3.2-4.8); Alkaline Phosphatase 105 U/L (46-116); Anion Gap 6 (5-15); Aspartate Aminotransferase 41 U/L (13-40); BUN/Creatinine Ratio 7.5 (10.0-20.0); Bilirubin, Total 0.5 mg/dL (0.2-1.0); Blood Urea Nitrogen 7 mg/dL (9-23); Calcium 9.4 mg/dL (8.5-10.1); Carbon Dioxide 32 mmol/L (20-30); Chloride 100 mmol/L (98-107); Glucose 317 mg/dL (74-106); Potassium 4.3 mmol/L (3.5-5.1); Sodium 138 mmol/L (136-145); Total Protein 7.9 g/dL (5.7-8.2)
[2024-02-17] MEDS ORDERED: DEXTROSE (50%) 50ML SYRG IV PRN (15:15)
[2024-02-17] MEDS: ACCU-CHEK COMFORT CURVE STRIP VI SCH (16:33)
[2024-02-17] MEDS: metFORMIN HYDROCHLORIDE 850 MG TAB PO SCH (16:56)
[2024-02-17] MEDS: InsuLIN REG 1unit/0.01ml Soln (100units/ml) SC SCH (16:58)
[2024-02-18 01:00] VITALS: BP 105/71; PULSE 75; RESP 22; TEMP 97.5; O2SAT 91
[2024-02-18 05:00] VITALS: BP 131/89; PULSE 75; RESP 20; TEMP 98.3; O2SAT 92
[2024-02-18 08:00] VITALS: PULSE 70; PULSE 73; RESP 18; O2SAT 94
[2024-02-18 09:00] VITALS: BP 122/76; PULSE 70; RESP 18; TEMP 97.7; O2SAT 94
[2024-02-18] MEDS ORDERED: METF-371 PO (10:33)
[2024-02-18] MEDS ORDERED: BLOO1KIT60 XX (10:33)
[2024-02-18] MEDS ORDERED: HYDR25TA5 PO (10:34)
[2024-02-18 12:48] VITALS: BP 132/76; PULSE 77; RESP 16; TEMP 97.6; O2SAT 95
[2024-02-18 13:00] VITALS: BP_SYST 112
== END 2024-02-18 14:03 | disposition home or self-care (01) | DRG 194 ==
LOC: ER 13:15 → OVERFLOW 16:52 → TELE 17:08 → TELE-WESTW 02-17 03:22
PROVIDERS: ADMIT Registered Nurse; ATTEND Nurse Practitioner Acute Care
DX: I11.0 Hypertensive heart disease with heart failure (principal); Z68.44 Body mass index [BMI] 60.0-69.9, adult; I50.31 Acute diastolic (congestive) heart failure; E66.01 Morbid (severe) obesity due to excess calories; E11.65 Type 2 diabetes mellitus with hyperglycemia; R09.89 Other specified symptoms and signs involving the circulatory and respiratory systems; Z83.3 Family history of diabetes mellitus; Z82.49 Family history of ischemic heart disease and other diseases of the circulatory system; Z79.84 Long term (current) use of oral hypoglycemic drugs; Z79.899 Other long term (current) drug therapy
CPT/HCPCS: 36415; 71045; 71046; 80048; 80053; 80061; 82962; 83036; 83880; 84443; 84450; 84460; 84484; 85025; 93005; 93306; 93970; 96374; G0378; J1815

== ENCOUNTER 2025-06-17 19:30 | Emergency (ER) | payer MEDICAID ==
[~2025-06-17] VITALS: Ht 180.3 cm; Wt 192.4 kg
[~2025-06-17 19:30] MED LIST: ACET-1304 PO; BLOO1KIT60 XX; HYDR25TA5 PO; METF-371 PO
--- NOTE | 2025-06-17 20:02 | ED.PDOC ---
Back pain HPI HPI Comments PT CAME TO THE ER WITH CC OF RIGHT CALF PAIN, PT WAS SENT OVER BY URGENT CARE TO RULE OUT DVT, PT IS A&OX4 RR EVEN AND REGULAR NO DISTRESS NOTED AT THIS TIME, PT DENIES N/V/D CP SOB Chief Complaint: Lower Extremity Time Seen by MD: 19:42 Primary Care Provider: NONE Reviewed Notes: Nurses Notes, Medications, Allergies Allergies: Coded Allergies: NO KNOWN ALLERGIES (Unverified , 06/09/20) Home Meds Active Scripts Hctz (Hydrochlorothiazide) 25 Mg Tab, 25 MG PO DAILY for 60 Days, #60 TAB Prov:GISELL MEZA [employer] 02/18/24 Blood Glucose Monitoring Suppl (D-VisualXcript Glucometer Kit/Glu W/Device) 1 Kit Kit, KIT XX BID, #1 Prov:GISELL MEZA [employer] 02/18/24 Metformin Hydrochloride (Metformin Hcl) 850 Mg Tab, 850 MG PO BIDWM for 60 Days, #120 TAB Prov:GISELL MEZA [employer] PROCESSOR 02/18/24 Reported Medications Acetaminophen (Tylenol Extra Strength) 500 Mg Tab, 500 MG PO, TAB 02/17/24 Information Source: Patient Mode of Arrival: Ambulatory Past Medical History PAST MEDICAL HISTORY: Arthritis Surgical History: Denies all surgeries Family History Family History: Reviewed,noncontributory to illness Social History Smoker: Non-Smoker Alcohol: Denies ETOH Use Drugs: Denies Drug Use Lives In: Home All Other Systems: Reviewed and Negative (see hpi) Physical Exam General Appearance: No Apparent Distress, Normal HEENT: Normal ENT Inspection, Pharynx Normal, TMs Normal Neck: Full Range of Motion, Non-Tender, Normal, Normal Inspection Respiratory: Chest Non-Tender, Lungs Clear, No Accessory Muscle Use, No Respiratory Distress, Normal Breath Sounds Cardiovascular: No Edema, No JVD, No Murmur, No Gallop, Normal Peripheral Pulses, Regular Rate/Rhythm Breast Exam: Deferred Gastrointestinal: No Organomegaly, Non Tender, No Pulsatile Mass, Normal Bowel Sounds, Soft Genitalia: Deferred Pelvic: Deferred Rectal: Deferred Extremities: Inflammation (right lower calf), Leg edema (right lower calf non- pitting ), Normal capillary refill, Normal range of motion Musculoskeletal : Apperance: Normal Neurologic: Alert, rcp II-XII nml as Tested, No Motor Deficits, Normal Affect, Normal Mood, No Sensory Deficits Cerebellar Function: Normal Reflexes: Normal Skin: Dry, Normal Color, Warm Lymphatic: No Adenopathy Was a procedure done? Was a procedure done?: No Back Pain Differential Dx Differential Diagnosis: Fracture, Musculoskeletal Pain X-Ray, Labs, Meds, VS Vital Signs Date Time Temp Pulse Resp B/P (MAP) Pulse Ox O2 Delivery O2 Flow Rate FiO2 06/17/25 20:33 99.1 85 17 131/71 (91) 94 99.1 06/17/25 20:33 85 17 94 Room Air 06/17/25 19:33 97.1 94 16 144/85 96 97.1 Lab Test 06/17/25 20:32 Range/Units White Blood Count 10.6 4.4-10.8 10^3/uL Red Blood Count 6.12 H 4.5-5.90 10^6/uL Hemoglobin 15.5 13.5-17.5 g/dL Hematocrit 47.9 41.0-53.0 % Mean Corpuscular Volume 78.3 L 80.0-100.0 fL Mean Corpuscular Hemoglobin 25.4 L 28.0-32.0 pg Mean Corpuscular Hemoglobin Concent 32.5 32.0-36.0 g/dL Red Cell Distribution Width 16.4 H 11.8-14.3 % Platelet Count 300 140-450 10^3/uL Mean Platelet Volume 7.6 6.9-10.8 fL Neutrophils (%) (Auto) 70.7 37.0-80.0 % Lymphocytes (%) (Auto) 21.9 10.0-50.0 % Monocytes (%) (Auto) 5.5 0.0-12.0 % Eosinophils (%) (Auto) 1.3 0.0-7.0 % Basophils (%) (Auto) 0.6 0.0-2.0 % Neutrophils # (Auto) 7.5 1.6-8.6 10 ^3/uL Lymphocytes # (Auto) 2.3 0.4-5.4 10 ^3/uL Monocytes # (Auto) 0.6 0-1.3 10 ^3/uL Eosinophils # (Auto) 0.1 0-0.8 10 ^3/uL Basophils # (Auto) 0.1 0-0.2 10 ^3/uL Nucleated Red Blood Cells 0.1 % D-Dimer, Quantitative 0.50 H 0.0-0.49 mg/L FEU Sodium Level 139 136-145 mmol/L Potassium Level 3.6 3.5-5.1 mmol/L Chloride Level 99 98-107 mmol/L Carbon Dioxide Level 31 20-31 mmol/L Anion Gap 9 5-15 Blood Urea Nitrogen 9 9-23 mg/dL Creatinine 0.91 0.700-1.30 mg/dL Glomerular Filtration Rate Calc 109 >90 mL/min BUN/Creatinine Ratio 9.9 L 10.0-20.0 Serum Glucose 206 H 74-106 mg/dL Calcium Level 9.0 8.7-10.4 mg/dL Total Bilirubin 0.3 0.2-1.0 mg/dL Aspartate Amino Transferase (AST) 21 13-40 U/L Alanine Aminotransferase (ALT) 23 7-40 U/L Alkaline Phosphatase 110 46-116 U/L Total Protein 8.3 H 5.7-8.2 g/dL Albumin 4.1 3.2-4.8 g/dL X-Ray, Labs, Meds, VS Comment IMPRESSION: 1. NO SONOGRAPHIC EVIDENCE FOR DEEP VENOUS THROMBOSIS IN THE RIGHT LOWER EXTREMITY VEINS. D-dimer 0.50 slightly elevated CBC within normal limits CMP elevated glucose patient states he prior to arrival. We will treat for cellulitis script trial of antibiotics advised to take medication as prescribed side effects discussed. Advised on compression stockings elevate right lower extremity. Advised to rest. Advised to follow up with his PCP in two three days for re-evaluation. ER return precautions given patient indicates understanding and agrees with discharge plan of care. Time of 1ST Reevaluation: 19:42 Reevaluation 1ST: Unchanged Time of 2ND Reevaluation: 23:04 Reevaluation 2ND: Improved Patient Education/Counseling: Diagnosis, Treatment, Need For Follow Up Family Education/Counseling: Diagnosis, Treatment, Need For Follow Up SEPSIS Sepsis Screen Date sepsis recognized/suspect: Jun 17, 2025 Time Sepsis recognized/suspect: 1934 Recent Procedure: No On Antibiotic Therapy: No Respiratory Rate >20: No Heart Rate >90: No Temp<36 C (96.8 F) or >38.3 C: No SBP <90 or MAP <65 mmHG: No New Acute Mental Status Change: No Is the patient on CPAP, BIPAP,: No Physician Orders Rt Lower Dvt (06/17/25 21:12) Vital Signs Date Time Temp Pulse Resp B/P (MAP) Pulse Ox O2 Delivery O2 Flow Rate FiO2 06/17/25 20:33 99.1 85 17 131/71 (91) 94 99.1 06/17/25 20:33 85 17 94 Room Air 06/17/25 19:33 97.1 94 16 144/85 96 97.1 Laboratory Tests Test 06/17/25 20:32 White Blood Count 10.6 10^3/uL (4.4-10.8) Departure 1 Departure Time of Disposition: 23:03 Impression: Primary Impression: Cellulitis Qualified Codes: L03.115 - Cellulitis of right lower limb Disposition: 01 HOME / SELF CARE / HOMELESS Condition: Stable e-Prescriptions Cephalexin Monohydrate (Cephalexin) 500 Mg Cap 500 MG PO Q6HR for 7 Days, #28 MG Prov: MAMADOU SARMIENTO 06/17/25 Discharged With: Self Critical Care Note Critical Care Time?: No Stability Stability form required: MAMADOU Peterson Jun 17, 2025 20:02
[2025-06-17 20:33] VITALS: BP 131/71; PULSE 85; RESP 17; TEMP 99.1; O2SAT 94
[2025-06-17 20:57] LABS: Hematocrit 47.9 % (41.0-53.0); Hemoglobin 15.5 g/dL (13.5-17.5); Mean Corpuscular Hemoglobin 25.4 pg (28.0-32.0); Mean Corpuscular Volume 78.3 fL (80.0-100.0); Nucleated Red Blood Cells % 0.1 %
[2025-06-17 21:07] LABS: Alanine Aminotransferase 23 U/L (7-40); Albumin 4.1 g/dL (3.2-4.8); Alkaline Phosphatase 110 U/L (46-116); Anion Gap 9 (5-15); BUN/Creatinine Ratio 9.9 (10.0-20.0); Calcium 9.0 mg/dL (8.7-10.4); Carbon Dioxide 31 mmol/L (20-31); Chloride 99 mmol/L (98-107); Potassium 3.6 mmol/L (3.5-5.1); Sodium 139 mmol/L (136-145)
[2025-06-17 21:08] LABS: Bilirubin, Total 0.3 mg/dL (0.2-1.0); Blood Urea Nitrogen 9 mg/dL (9-23); Glucose 206 mg/dL (74-106); Total Protein 8.3 g/dL (5.7-8.2)
--- NOTE | 2025-06-17 22:44 | DVH ---
CLINICAL HISTORY: right lower leg edema and erythema TECHNIQUE: Color and duplex doppler imaging of the right lower extremity veins was performed. Vessel compression if possible was also performed. WID: COMPARISON: US BILAT LOWER DVT on DOS: 02/16/24 FINDINGS: Enlarged right inguinal lymph node Reactive appearing measuring 2.3 cm. Right common femoral vein: Normal compressibility and flow. Right femoral vein: Normal compressibility and flow. Right popliteal vein: Normal compressibility and flow. Proximal calf veins are normally compressible. A varicose vein in the right popliteal fossa is seen. IMPRESSION: 1. NO SONOGRAPHIC EVIDENCE FOR DEEP VENOUS THROMBOSIS IN THE RIGHT LOWER EXTREMITY VEINS.
[2025-06-17] MEDS ORDERED: CEPH500C PO (23:04)
== END 2025-06-17 23:14 | disposition home or self-care (01) ==
LOC: ER 19:30
DX: L03.115 Cellulitis of right lower limb (principal); M19.90 Unspecified osteoarthritis, unspecified site; Z79.899 Other long term (current) drug therapy; Z86.718 Personal history of other venous thrombosis and embolism
CPT/HCPCS: 36415; 80053; 85025; 85379; 93971